=== PATIENT | female | born 1995 | race Two or more races ===

== ENCOUNTER 2018-09-30 16:53 | Emergency (ER) | payer OTHER ==
[~2018-09-30] VITALS: Ht 154.9 cm; Wt 54.4 kg
[~2018-09-30 16:53] MED LIST: BUTA1CAP29 PO; PRED50TA PO; PROM25TA10 PO; SUMA50TA3 PO
[2018-09-30 17:11] VITALS: BP 140/69
--- NOTE | 2018-09-30 17:21 | PHYS DOC ---
Past Medical History Past Medical History: High Cholesterol Past Surgical History: No Surgical History Additional Past Surgical Histo: wisdom teeth Alcohol Use: None Drug Use: None Adult General Chief Complaint Chief Complaint: COUGH HPI HPI Patient is a 23 year old female who presents with cough and nasal congestion symptoms for 6 days. Patient denies any fever. Complaining of chills. Review of Systems Review of Systems Constitutional: Denies fever report chills [] Eyes: Denies change in visual acuity, redness, or eye pain [] HENT: Reports sore throat, nasal congestion Respiratory: Reports Cough denies shortness of breath [] Cardiovascular: No additional information not addressed in HPI [] GI: Denies abdominal pain, nausea, vomiting, bloody stools or diarrhea [] : Denies dysuria or hematuria [] Musculoskeletal: Denies back pain or joint pain [] Integument: Denies rash or skin lesions [] Neurologic: Denies headache, focal weakness or sensory changes [] All other systems were reviewed and found to be within normal limits, except as documented in this note. Current Medications Current Medications Current Medications Medications (Trade) Dose Ordered Sig/Solo Start Time Stop Time Status Last Admin Dose Admin Albuterol/ Ipratropium (Duoneb) 3 ml 1X ONCE 09/30/18 17:30 09/30/18 17:31 DC 09/30/18 17:35 3 ML Benzonatate (Tessalon Perle) 100 mg 1X ONCE 09/30/18 17:30 09/30/18 17:31 DC 09/30/18 17:25 100 MG Prednisone (Prednisone) 50 mg 1X ONCE 09/30/18 17:30 09/30/18 17:31 DC 09/30/18 17:26 50 MG Allergies Allergies Allergies Coded Allergies Type Severity Reaction Last Updated Verified No Known Drug Allergies 12/14/13 No Physical Exam Physical Exam Constitutional: Well developed, well nourished, no acute distress, non-toxic appearance. [] HENT: Normocephalic, atraumatic, bilateral external ears normal, oropharynx moist, no oral exudates, nose normal. [] Eyes: PERRLA, EOMI, conjunctiva normal, no discharge. [] Neck: Normal range of motion, no tenderness, supple, no stridor. [] Cardiovascular:Heart rate regular rhythm, no murmur [] Lungs & Thorax: Bilateral breath sounds clear to auscultation [] Abdomen: Bowel sounds normal, soft, no tenderness, no masses, no pulsatile masses. [] Skin: Warm, dry, no erythema, no rash. [] Back: No tenderness, no CVA tenderness. [] Extremities: No tenderness, no cyanosis, no clubbing, ROM intact, no edema. [] Neurologic: Alert and oriented X 3, normal motor function, normal sensory function, no focal deficits noted. [] Psychologic: Affect normal, judgement normal, mood normal. [] Current Patient Data Vital Signs Vital Signs Date Time Temp Pulse Resp B/P (MAP) Pulse Ox O2 Delivery O2 Flow Rate FiO2 09/30/18 17:36 Room Air 09/30/18 17:11 98.4 117 20 140/69 (92) 97 98.4 EKG EKG [] Radiology/Procedures Radiology/Procedures [] Course & Med Decision Making Course & Med Decision Making Pertinent Labs and Imaging studies reviewed. (See chart for details) This is a 23 year old female who presents with cough and nasal congestion symptoms for 6 days. Patient also complained of sore throat, refuses strep test. Given a DuoNeb treatment, prednisone, Tessalon pulse. Patient better. Symptoms are likely viral at this point supportive care. Discharged with albuterol inhaler, prednisone, Tessalone Perles, Flonase and f/u with PCP next week. Dragon Disclaimer Dragon Disclaimer This electronic medical record was generated, in whole or in part, using a voice recognition dictation system. Departure Departure Impression: Primary Impression: Acute bronchitis Additional Impression: URI (upper respiratory infection) Disposition: 01 HOME, SELF-CARE Condition: STABLE Referrals: NO PCP (PCP) follow up with your doctor in 1-2 weeks Patient Instructions: Acute Bronchitis, Upper Respiratory Infection, Adult, [id number] Additional Instructions: You were seen in the ED with symptoms consistent of viral infection. Take the prescribed medications as ordered. Follow-up with your doctor in 1-2 weeks. Scripts Fluticasone Propionate (Flonase Allergy Relief) 9.9 Ml [place].susp 2 SPRAYS NS DAILY, #1 BOTTLE Prov: LEO ANGELES SSRS DEVELOPER 09/30/18 Albuterol Sulfate (VENTOLIN HFA INHALER) 18 Gm Hfa.aer.ad 2 PUFF INH Q4HRS for FOR ASTHMA, #1 INHALER 0 Refills Prov: LEO ANGELES APRN 09/30/18 Benzonatate (TESSALON PERLE) 100 Mg Capsule 1 CAP PO TID, #30 CAP Prov: LEO ANGELES APRN 09/30/18 Prednisone (PREDNISONE) 50 Mg Tablet 1 TAB PO DAILY, #4 TAB Prov: LEO ANGELES APRN 09/30/18 Problem Qualifiers Primary Impression: Acute bronchitis Bronchitis organism: unspecified organism Qualified Codes: J20.9 - Acute bronchitis, unspecified Additional Impression: URI (upper respiratory infection) URI type: unspecified URI Qualified Codes: J06.9 - Acute upper respiratory infection, unspecified LEO ANGELES APRN Sep 30, 2018 17:21
[2018-09-30] MEDS ORDERED: BENZONATATE 100 MG CAPSULE. PO ONE (17:30)
[2018-09-30] MEDS ORDERED: IPRATRPIUM/ALBUTEROL 0.5/2.5MG 3 ML NEBU. NEB ONE (17:30)
[2018-09-30] MEDS ORDERED: predniSONE 10 MG TABLET PO ONE (17:30)
[2018-09-30] MEDS ORDERED: PRED50TA PO (17:50)
[2018-09-30] MEDS ORDERED: VENTOLIN HFA18 GM INH (17:50)
[2018-09-30] MEDS ORDERED: BENZ100C PO (17:50)
[2018-09-30] MEDS ORDERED: FLUT9.9S NS (17:50)
== END 2018-09-30 18:21 | disposition home or self-care (01) ==
LOC: ER 16:53
DX: J20.9 Acute bronchitis, unspecified (principal); J06.9 Acute upper respiratory infection, unspecified; E78.00 Pure hypercholesterolemia, unspecified; R68.83 Chills (without fever)
CPT/HCPCS: 94640; 99283; J7512; J7620